=== PATIENT | male | born 1970 | race Native Hawaiian/Other Pacific Islander ===

== ENCOUNTER 2019-11-25 15:51 | Emergency (ER) | payer OTHER ==
[~2019-11-25] VITALS: Ht 172.7 cm; Wt 68.0 kg
[2019-11-25 15:58] VITALS: BP 147/91; TEMP 100
[2019-11-25 17:08] LABS: PLATELET COUNT 251 K/uL (142-355)
[2019-11-25 17:10] LABS: POTASSIUM 3.9 mmol/L (3.6-5.2)
== END 2019-11-25 17:47 | disposition home or self-care (01) ==
LOC: ED 15:51
PROVIDERS: Emergency Medicine
DX: M79.604 Pain in right leg (principal); Z86.718 Personal history of other venous thrombosis and embolism
CPT/HCPCS: 80053; 85027; 85379; 99283